=== PATIENT | female | born 1975 | race Caucasian/White ===

== ENCOUNTER 2020-01-04 16:23 | Emergency (ER) | payer OTHER ==
[~2020-01-04] VITALS: Ht 162.6 cm; Wt 71.7 kg
[2020-01-04] MEDS ORDERED: FLEXERIL PO (16:53)
[2020-01-04] MEDS ORDERED: VENLAFAXIN37.5 MG/1 PO (16:54)
[2020-01-04] MEDS ORDERED: PEPCID AC10 MG PO (16:54)
[2020-01-04] MEDS ORDERED: KEFLEX500 M1 PO (17:14)
[2020-01-04 17:42] VITALS: BP 133/94
== END 2020-01-04 17:43 | disposition home or self-care (01) ==
LOC: M.ERS 16:23
DX: S01.01XA Laceration without foreign body of scalp, initial encounter (principal); Z90.12 Acquired absence of left breast and nipple; Z85.3 Personal history of malignant neoplasm of breast; Z88.6 Allergy status to analgesic agent; W22.8XXA Striking against or struck by other objects, initial encounter; Y93.89 Activity, other specified; Y92.89 Other specified places as the place of occurrence of the external cause; Y99.8 Other external cause status

== ENCOUNTER 2020-06-25 14:46 | Emergency (ER) | payer OTHER ==
[~2020-06-25] VITALS: Ht 162.6 cm; Wt 68.5 kg
[~2020-06-25 14:46] MED LIST: FLEXERIL PO; KEFLEX500 M1 PO; PEPCID AC10 MG PO; VENLAFAXIN37.5 MG/1 PO
[2020-06-25 15:26] LABS: ABSOLUTE EOSINOPHILS 0.1 thou/uL (0.0-0.7); ABSOLUTE LYMPHOCYTES 2.5 thou/uL (0.8-5.3); ABSOLUTE MONOCYTES 0.6 thou/uL (0.0-1.2); ABSOLUTE NEUTROPHILS 5.2 thou/uL (1.6-8.1); BASOPHILS 0.4 %; EOSINOPHILS 0.7 %; HEMATOCRIT 44.2 % (37.0-47.0); HEMOGLOBIN 15.1 gm/dL (12.0-15.0); LYMPHOCYTES 29.9 %; MCHC 34.2 g/dL (28.0-37.0); MCV 96.6 fL (80.0-100.0); MONOCYTES 7.1 %; MPV 6.7 fl. (7.2-11.1); NUCLEATED RBCS 0 /100WBC; PLATELET COUNT* 231 thou/uL (150-400); POLYS 61.9 %; RBC 4.57 mil/uL (4.20-5.00); RDW-CV 13.8 % (10.5-14.5); WBC 8.5 thou/uL (4.0-11.0)
[2020-06-25 15:39] LABS: CALCIUM 8.7 mg/dL (8.5-10.1); CREATININE 0.9 mg/dL (0.6-1.3); POTASSIUM 3.8 mmol/L (3.5-5.1)
[2020-06-25 15:43] LABS: PROTIME 10.3 Seconds (9.20-11.50)
[2020-06-25 15:49] LABS: ALBUMIN 3.1 g/dL (3.4-5.0); MAGNESIUM 1.9 mg/dL (1.8-2.4); TOTAL BILIRUBIN 0.4 mg/dL (<0.1-1.0); TOTAL PROTEIN 7.1 g/dL (6.4-8.2)
[2020-06-25] MEDS ORDERED: NORCO 5-325 TA1 EAC2 PO (17:58)
[2020-06-25 18:05] VITALS: BP 117/64
--- NOTE | 2020-06-26 10:18 | EKG ---
[place] [address] ELECTROCARDIOGRAM REPORT Name: GIANNA MARTINEZ Room: [facility]#: [id number] Admission: 06/25/20 Attend Phys: Discharge: 06/25/20 Date of : 71 Date of Service: 06/25/20 1451 Report #: [id number] THIS REPORT FOR: //name// [facility] ED Test Date: 2020-06-25 Test Time: 14:51:17 Pat Name: GIANNA MARTINEZ Department: Room: Gender: F Cloth [employer]her: ESTRELLA : 1975 Requested By: Sushil Ortega Order Number: [id number] MD: Garry Pang Measurements Intervals [place] Rate: 122 P: 73 FL: 81 QRS: 62 QRSD: 82 T: -31 QT: 320 QTc: 456 Interpretive Statements Sinus tachycardia Low voltage with right axis deviation No previous ECG available for comparison Electronically Signed On 06-26-2020 10:18:43 CDT by Garry Pang [email or web address] <ELECTRONICALLY SIGNED> By: Garry Pang MD, [facility] 06/26/20 1018 1451 50 Garry Pang MD, FACC /EPI
== END 2020-06-25 18:06 | disposition home or self-care (01) ==
LOC: M.ERS 14:46
PROVIDERS: Emergency Medicine Emergency Medical Services
DX: R07.89 Other chest pain (principal); F17.210 Nicotine dependence, cigarettes, uncomplicated; Z85.3 Personal history of malignant neoplasm of breast; Z88.5 Allergy status to narcotic agent